=== PATIENT | male | born 1995 | race African-American/Black ===

== ENCOUNTER 2025-03-29 09:49 | Emergency (ER) | payer OTHER ==
[2025-03-29] MEDS: Diphtheria,Pertussis(Acell),Tetanus Vaccine 0.5 ML Syringe IM ONE (10:02)
[2025-03-29 10:04] LABS: MEAN PLATELET VOLUME 7.8 fL (6.7-11.0); PLATELET COUNT,PLT 222 x10(3)uL (117-477); RED BLOOD CELL COUNT 4.81 x10(6)uL (3.90-5.90); RED CELL DISTRIBUTION WIDTH 14.4 % (12.4-15.0); WHITE BLOOD CELL COUNT,WBC 6.7 x10-3/uL (3.2-10.1)
[2025-03-29 10:07] LABS: BLOOD UREA NITROGEN,BUN 14 mg/dL (7-18); CARBON DIOXIDE,CO2 26 mmol/L (21-32); CHLORIDE,CL 103 mmol/L (100-110); CREATININE 1.1 mg/dL (0.70-1.30); EST CRCL DRUG DOSING (CG) 101.39 mL/min; ESTIMATED GFR 93 mL/min (>60); GLUCOSE RANDOM 121 mg/dL (80-116); POTASSIUM,K 3.6 mmol/L (3.5-5.3); SODIUM,NA 137 mmol/L (135-145)
[2025-03-29] MEDS: Sodium Chloride 0.9% 10 ML Syringe FLUSH PRN (10:07)
[2025-03-29 10:12] LABS: INR 0.88 (1.00-1.24)
[2025-03-29] MEDS: HYDROmorphone 2 MG/ML SDV IVPUSH ONE (10:12)
[2025-03-29 10:13] LABS: A/G RATIO 1.3; ALANINE AMINOTRANSFERASE,ALT 23 U/L (12-36); ASPARTATE AMNIOTRANSFERASE,AST 22 IU/L (5-25); BILIRUBIN TOTAL 0.5 mg/dL (0.1-1.3); PROTEIN TOTAL,TP 7.7 g/dL (6.0-8.0)
[2025-03-29 10:20] LABS: EOSINOPHILS PERCENT MAN 1 % (0-5); LYMPHOCYTES PERCENT MAN 62 % (13-37); MONOCYTES PERCENT MAN 8 % (4-12); SEG NEUTROPHILS PERCENT MAN 29 % (46-82)
[2025-03-29 10:43] LABS: PTT,PARTIAL THROMBOPLSTIN TIME 27.0 SECONDS (24.4-33.2)
== END 2025-03-29 11:05 ==
LOC: FB.ED 09:49
DX: S49.92XA Unspecified injury of left shoulder and upper arm, initial encounter (principal); W29.2XXA Contact with other powered household machinery, initial encounter
CPT/HCPCS: 36415; 73060; 80053; 85025; 85610; 85730; 90471; 90715; 96361; 96374; 96375; 99284; J0690; J1171; J7030